=== PATIENT | female | born 1975 ===

== ENCOUNTER 2025-07-23 14:36 | Outpatient (CLI) | payer OTHER, MEDICAID, SELFPAY ==
--- OUTSIDE RECORDS SUMMARY | 2019-12-31 19:00 | XMS_ITS | Continuity of Care Document ---
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 Name Role Phone Neo Gillette MD Unavailable Unavailable Allergies, Adverse Reactions, Alerts Substance Reaction Status Criticality doxycycline Hives Active No Information lisinopril Active No Information Medications Medication Instructions Dosage Effective Dates (start - stop) Status Comments Xanax 0.25 mg tablet take 1 tablet by or al route 2 times every day as needed - Active Celexa 20 mg tablet take 1 tablet by ora l route every night - Active Celexa 40 mg tablet take 1 tablet by ora l route every morning - Active Celebrex 200 mg capsule take 1 capsule b y oral route every day as needed take with food - Active famotidine 40 mg tablet take 1 tablet by oral route every day at bedtime 40 MG - Active amlodipine 5 mg tablet take 1 tablet by oral route every day 5 MG - Active Nasonex 50 mcg/actuation [place] spray 2 spray by intranasal route every day in each nostril - Active spironolactone 25 mg tablet take 1 tablet by oral route every day 25 MG - Active tobramycin 0.3 % eye drops instill 1 drop by ophthalmic route 3 times a day into affected eye(s) for 7 days - Active loratadine 10 mg tablet take 1 tablet by oral route every day 10 MG - Active aspirin 81 mg chewable tablet chew 1 tablet (81MG) by oral route every day 81 MG - Active Procedures Procedure Date OFFICE/OUTPATIENT VISIT, EST OFFICE/OUTPATIENT VISIT, EST Urinalysis, Auto, w/o Scope URINE TEST, BY VISUAL COLOR CO MPARISON METHODS X-RAY EXAM, SPINE, CERVICAL, MIN 4 VIEWS OFFICE/OUTPATIENT VISIT, EST URINE TEST, BY VISUAL COLOR CO MPARISON METHODS Urinalysis, Auto, w/o Scope OFFICE OUTPT EST 25 MIN Alcohol and/or drug screening 7 OFFICE OUTPT EST 25 MIN Psychotherapy 30 Min W/pt And/or Family Member OFFICE OUTPT EST 25 MIN Drug Screen, Any Number Of Drugs/Date Of Service OFFICE OUTPT EST 25 MIN Alcohol and/or drug screening 5 Urinalysis, Auto, w/o Scope HEMOGLOBIN; GLYCOSYLATED (A1C) 15 COLLECTION OF CAPILLARY BLOOD SPECIMEN ( EG, FINGER, HEEL, EAR STICK) COLLECTION OF VENOUS BLOOD BY VENIPUNCTU RE BLOOD COUNT; COMPLETE (CBC), AUTOMATED D IFF COMPRE METAB PANEL LIPID PANEL URINALYSIS; MICROSCOPIC ONLY Amalgam two surfaces OFFICE/OUTPATIENT VISIT, EST OFFICE/OUTPATIENT VISIT, EST OFFICE/OUTPATIENT VISIT, EST OFFICE/OUTPATIENT VISIT, EST ELECTROCARDIOGRAM, COMPLETE COLLECTION OF VENOUS BLOOD BY VENIPUNCTU RE OFFICE/OUTPATIENT VISIT, NEW Dental bitewings four films Comprehensve oral evaluation Periodont scaling & root planing, 4+ daysi th, per qu Local Anesthesia - Pain Control 012 Oral hygiene instruction Voided Encounter Advance Directives Directive Yes / No Effective Date File Name No Information Encounters Encounter Description Practice Location Reason(s) For Visit Diagnoses Date Provider Providers Copied on Encounter [facility], [address], [place], [place], [id number] , [place] tel: [phone] [facility] No Information 0 Leta Neo. [address], [place], [place], [address], . tel: [phone] OFFICE/OUTPATI ENT VISIT, EST [facility], [address], [place], [place], [address] , [place] tel: [phone] [facility] Problems (chief complaint) Anxiety disorder, unspecifiedE ssential (primary) hypertension No Information OFFICE/OUTPATI ENT VISIT, EST [facility], [address], [place], [place], [address] , [place] tel: [phone] [facility] LT arm/ w Lt back pain (chief complaint)nec k pain (chief complaint) CervicalgiaP ain, unspecified No Information [facility], [address], [place], [place], [address] , [place] tel: [phone] [facility] No Information No Information [facility], [address], [place], [place], [address] , [place] tel: [phone] [facility] No Information 7 Hipolito Villafuerte. [address], [place], [place], [address], [place]. tel:[phone] OFFICE/OUTPATI ENT VISIT, EST [facility], [address], [place], [place], [address] , [place] tel: [phone] [facility] left eye irritation (chief complaint) Conjunctivit is 7 Hipolito Villafuerte. [address], [place], [place], [address], [place]. tel:[phone] Referring Provider: Christo Mcmillan, [address], [place], [address] . tel:[phone] OFFICE OUTPT EST 25 MIN [facility], [address], [place], [place], [address] , [place] tel: [phone] [facility] Problems (chief complaint) Anxiety disorder, unspecifiedE ssential (primary) hypertension Gastro-esoph ageal reflux disease without esophagitisH yperlipidemi a, unspecified 7 No Information OFFICE OUTPT EST 25 MIN [facility], [address], [place], [place], [address] , tel: [phone] [facility] Problems (chief complaint) Costochondri tisAbnormal electrocardi ogram [ECG] [EKG]Anxiety disorder, unspecifiedA llergic rhinitisEsse ntial (primary) hypertension Hyperlipidem iaGERD w/o esophagitis 6 No Information Psychotherapy 30 Min W/pt And/or Family Member [facility], [address], [place], [place], [address] , tel: [phone] [facility] Anxiety disorder, unspecified 6 No Information OFFICE OUTPT EST 25 MIN [facility], [address], [place], [place], [address] , [place] tel: [phone] [facility] PHARMACY PAPERWORK (chief complaint)DIS CUSS MEDICATIONS (chief complaint)hyp ertension (chief complaint) Essential (primary) hypertension GERD w/ esophagitisN icotine dependence, unspecified, uncomplicate dAnxiety disorder, unspecifiedH yperlipidemi a No Information [facility], [address], [place], [place], [address] , tel: [phone] [facility] No Information 6 No Information [facility], [address], [place], [place], [address] , [place] tel: [phone] [facility] Follow Up of HTN (chief complaint)SIN US PROBLEMS (chief complaint)URI NARY FREQUENCY (chief complaint) Allergic rhinitisNico osman dependence, unspecified, uncomplicate dVitamin D deficiencyEn counter for screening for other disorderInso mnia, unspecified 6 No Information OFFICE OUTPT EST 25 MIN [facility], [address], [place], [place], [address] , [place] tel: [phone] [facility] Follow Up of HTN (chief complaint)REF ILLS (chief complaint) Encounter for general adult medical examination without abnormal findingsEsse ntial (primary) hypertension InsomniaGERD w/ esophagitisU rinary frequencyEnc ounter for screening for other disorder 5 No Information [facility], [address], [place], [place], [address] , [place] tel: [phone] [facility] examination 3 Nahomi Mckeon [address], [place], [place], [address], [place]. tel:[phone] OFFICE/OUTPATI ENT VISIT, EST [facility], [address], [place], [place], [address] , [place] tel: [phone] [facility] sinusitis (chief complaint)hyp ertension (chief complaint) Hypertension Sinusitis 3 No Information OFFICE/OUTPATI ENT VISIT, EST [facility], [address], [place], [place], [address] , [place] tel: [phone] [facility] hypertension f/u (chief complaint) Hypertension Sinusitis 3 No Information OFFICE/OUTPATI ENT VISIT, EST [facility], [address], [place], [place], [address] , [place] tel: [phone] [facility] chest pain (chief complaint)HTN (chief complaint) Hypertension Stressful life event affecting family 2 No Information OFFICE/OUTPATI ENT VISIT, EST [facility], [address], [place], [place], [address] , [place] tel: [phone] [facility] hypertension (chief complaint) Hypertension Chest painAbnormal ECG 2 No Information OFFICE/OUTPATI ENT VISIT, NEW [facility], [address], [place], [place], [address] , [place] tel: [phone] [facility] abnormal heart beats (chief complaint)hyp ertension (chief complaint) Hypertension AnxietyAbnor mal ECG No Information [facility], [address], [place], [place], [address] , tel: [phone] [facility] [place] Dental examination No Information [facility], [address], [place], [place], [address] , tel: [phone] [facility] No Information No Information Family History Family Member Type Diagnosis Age At Onset Problem (finding) Family history of coronary arteriosclerosis Problem (finding) Family history of diabetes mellitus type 2 Payers Payer name Insurance type Covered democrat ID Authoriza tion(s) No Information Social History Type Description Quantity Date Captured Comments Sex Female Smoking Status No Information Chief Complaint And Reason For Visit No Information Reason For Referral Reason For Referral No Information Plan Of Treatment Date Type Action Status Goal TSH. Due on due Goal ECG. Due on due Goal BMP fasting. Due on due Goal Lipid Panel. Due on due Goal AST. Due on due Goal ALT. Due on due Goal AST. Due on due Goal TSH. Due on due Goal ALT. Due on due Goal BMP fasting. Due on due Goal ECG. Due on due Goal Lipid Panel. Due on due Goal Lipid Panel. Due on due Goal TSH. Due on due Goal ECG. Due on due Goal BMP fasting. Due on due Goal ALT. Due on due Goal AST. Due on due Goal BMP fasting. Due on due Goal Lipid Panel. Due on due Goal AST. Due on due Goal ALT. Due on due Goal ECG. Due on due Goal TSH. Due on due Goal Lipid Panel. Due on due Goal TSH. Due on due Goal AST. Due on due Goal ALT. Due on due Goal ECG. Due on due Goal BMP fasting. Due on due Goal ALT. Due on due Goal Lipid Panel. Due on due Goal AST. Due on due Goal BMP fasting. Due on due Goal TSH. Due on due Goal ECG. Due on due Goal Lipid Panel. Due on due Goal ECG. Due on due Goal BMP fasting. Due on due Goal TSH. Due on due Goal ALT. Due on due Goal AST. Due on due Goal ECG. Due on due Goal TSH. Due on due Goal Lipid Panel. Due on due Goal AST. Due on due Goal BMP fasting. Due on due Goal ALT. Due on due Goal Tobacco cessation counseling completed Goal ALT. Due on due Goal BMP fasting. Due on due Goal ECG. Due on due Goal TSH. Due on due Goal Lipid Panel. Due on due Goal AST. Due on due Goal Tobacco cessation counseling completed Goal TSH. Due on due Goal AST. Due on due Goal BMP fasting. Due on due Goal ALT. Due on due Goal Lipid Panel. Due on due Goal ECG. Due on due Goal Tobacco cessation counseling completed Goal ECG. Due on due Goal BMP fasting. Due on due Goal TSH. Due on due Goal Lipid Panel. Due on due Goal ALT. Due on due Goal AST. Due on due Goal Tobacco cessation counseling completed Referral Referred To: [address], [phone] Ordered: Referral: [facility]. Radiology-Chest Xray. ordered Referral Referred To: [address], [address] [phone] Ordered: Referral: [facility]. Cardiology. Consult. Appointment date/timeframe: 01/11/2013 ordered Future Order: Lab Order Vitamin D, 25-Hydroxy (OC47), Ordered on: Ordered Future Order: Lab Order TSH with Reflex to Free T4 (OC58), Ordered on: Ordered Future Order: Lab Order Lipid Pa jef (OC73), Ordered on: Ordered Future Order: Lab Order CBC (H/H , RBC, INDICES, WBC, PLT) (OC68), Ordered on: Ordered Future Order: Lab Order Comprehe nsive Metabolic Panel (OC71), Ordered on: Ordered History Of Present Illness Encounter Date Complaint History Of Prese nt Illness Problems Muscle pain s in neckNotes muscle pains and tightness posterior neck for a month or so. Seen in UC with this. methocarbamol not helpful. She believes this to be due to clinching and grinding of teeth at night - a long-time problem. Has a mouthpiece but takes it out while sleeping lately. All may be worse since out of alprazolam - months overdue for followup. Resume alplazolam once or twice per day, especially at HS. HTNBP is borderline high. Monitor. Wt up a few poundsAnxiety/DepressionStill on celexa 60 mg. It helps her. Restart Xanax NOT ADDRESSED TODAY:SmokerSmoking 2/3 pack per day. Knows to quitHyperlipidemiaAttempting life style changes for nowchest painMuch better. Rare pain now. Usually at rest - comes and goes for 5 minutes or so. Not exertional at all.EKG here was abnormal with ST-T abnormalities in inferior leads, but EKG unchanged from 2012. Had some chest pain then as well and was sent to [facility] and hospitalized. Had monitoring, workup including stress echo - all negative. More recent pains similar. Had definite tenderness over CC junctions on left. LT arm/ w Lt back pain The sympt oms began 4 weeks ago. She states the symptoms are acute. 41 yr old bf a a seen for upper backacheneck pain pain to left sode neck feels knots there and pain goes to left arm no fever chills nausea vomiting no cough sweating weight loss recently got few weeks ago at [facility] neck pain Onset: 4 weeks a go. Location of pain is left lateral neck, left posterior neck and left upper back. Aggravating factors include rotation. Pertinent negatives include dysphagia, incoordination, loss of balance, muscle atrophy, rash, tingling, weakness and weight loss. Additional information: denies any loss of sensations or weakness. left eye irritation C/O red irri tated drianing left eye for seven days, thinks may have initially gotten a facial cleanser in the eye, been using Cipro ophthalmic gtts with slight improvement but no resolution. Note AM crusting as well as tearing/drainage throughout the day. No fever or chills. Denies foreign body or other direct eye trauma. Problems pap smear and mayte vizcarra done [facility] last yr.HTNBP still borderline high on amlodipine 5mg. Makes her feel sluggish so takes it at night. Says lisinopril did same in past but also had cough with it. Try lifestyle changesPreviously noted she has a wrist BP cuff which gave her consistently getting high BPs. Advised to obtain and use an arm cuff instead but has not obtained one yet. .SmokerSmoking 2/3 pack per day. Knows to quitHyperlipidemiaAttempting life style changes for nowAnxiety/DepressionStill on celexa 60 mg. It helps her. On Xanax - uses it prn once or twice per daychest painMuch better. Rare pain now. Usually at rest - comes and goes for 5 minutes or so. Not exertional at all.EKG here was abnormal with ST-T abnormalities in inferior leads, but EKG unchanged from 2012. Had some chest pain then as well and was sent to [facility] and hospitalized. Had monitoring, workup including stress echo - all negative. More recent pains similar. Had definite tenderness over CC junctions on left. Problems chest painRe ports intermittent left chest pains for the last several months. Usually at rest - comes and goes for 5 minutes or so. Not daily, but sometimes off and on for days. When present, the pain is worse with breathing or movement. Otherwise activity is not related. Not exertional at all.EKG today abnormal with ST-T abnormalities in inferior leads. EKG unchanged from 2012. Had some chest pain then as well and was sent to [facility] and hospitalized. Had monitoring, workup including stress echo - all negative. Pain now is similar. Has definite tenderness over CC junctions on left.HTNHas wrist BP cuff. Used here today and is consistently getting high BPs - today was 140/103 but at home often 160-170 systolic. Here our automated cuff gave 126/82 and manually I found 130/82 on right and 130/85 on left. Advised to obtain and use an arm cuff instead.SmokerSmoking 3/4 pack per day. Knows to quitHyperlipidemiaAttempting life style changes for nowAnxiety/DepressionStill on celexa 60 mg. It helps her. Out of Xanax - uses prn a few times per week. DISCUSS MEDICATIONS PHARMACY PAPERWORK 40 year old A AF with PMH of HTN,HLD, depression, anxiety presents for f/u. Anxiety: Used to f/u private psychiatrist but cant afford visits any more as she lost her insurance. was prescribed lexapro last visit but pt states her symptoms were nto better. She would liek to go back to celexa prescribed by her psychiatrist, she was on celexa 60mg QD. Denies suicidal thoughts. Hyperlipidemia: Kathn refused to start medication. Preferred life style modification hypertension Risk factors inc lude race and smoking. Pertinent negatives include chest pain, claudication, confusion, diaphoresis, dyspnea, epistaxis, fatigue, headache, hematuria, irregular heartbeat/palpitations, nausea, tinnitus, transient weakness, tremor, visual disturbances and vomiting. SINUS PROBLEMS URINARY FREQUENCY Follow Up of HTN History of Pres ent Illness:1. Follow Up of HTN 39 year old AAF with PMH of HTN, depression, anxiety presents for f/u. Pt used to f/u PCP at out side facility and would like ot reestablish care wit [facility].Anxiety: Used to f/u private psychiatrist but cant afford visits any more as she lost her insurance. On xanax as needed prescribed by psychHTN: states she had bad cough with lsiinopril. She was palce don diuretic by previous PCP as she had bad LE swelling few years back which got better now. Takes meds faithfully.Insomnia: has probelms falling asleep. REFILLS Follow Up of HTN 39 year old AAF with PMH of HTN, depression, anxiety presents for f/u. Pt used to f/u PCP at out side facility and would like ot reestablish care wit Michaeljennie.Anxiety: Used to f/u private psychiatrist but cant afford visits any more as she lost her insurance. On xanax as needed prescribed by psychHTN: states she had bad cough with lsiinopril. She was palce don diuretic by previous PCP as she had bad LE swelling few years back which got better now. Takes meds faithfully.Insomnia: has probelms falling asleep. Functional Status Date Functional Assessmen t No Information Instructions Date Instruction Additional Infor lisa Get back on alprazol am especially at bedtimeFollowup in 6-8 weeks Related to Essential (primary) hypertension work on everything y ou can control STOP SMOKING Work on your dietary intake - less fat and less sugar, lower calories Take medicinesFollowup in June -- call in early April for appointment Related to Hyperlipidemia, unspecified Refilling medicinesT lilly famotidine every day!!Stop smokingKeep working on the dietGet an arm BP cuffFollowup in 2 months Related to GERD w/o esophagitis Eat healthy. Exercis e regularly.- Make appointment with dental.- Make sure you keep up the follow up appointments Related to Encounter for general adult medical examination without abnormal findings Take medications as prescribed Take medications as prescribed Take medications as prescribed Take medications as prescribed Continue current medication Stop Naprosyn after one week. Continue current medication Go to local ER if ca n not see chief deputy today. Take medications as prescribed Check to see can the Cardiology appointment be sooner. Take medications as prescribed See chief deputy BESS. Aleve 200mng, 2 twic e a day x 7 days with food. Assessments Type Assessment Date No Information Patient Care Teams Name Effective Dates (start - stop) Status Members No Information
--- NOTE | ~2025-07-23 | CT_ITS ---
CT ABDOMEN AND PELVIS WITHOUT CONTRAST Clinical History: FREQUENCY OF URINATION Comparison: None Technique: Unenhanced axial images lung bases to symphysis pubis Coronal, sagittal reformats CT images acquired with automatic exposure control for dose reduction DLP: 286 mGy-cm Findings: Without intravenous contrast, sensitivity for detecting visceral parenchymal abnormalities decreased. Lung bases: Clear. Visualized heart and pericardium: Unremarkable. Liver: A few small cysts. Gallbladder: Unremarkable. Spleen: Unremarkable. Pancreas: Unremarkable. Adrenal glands: Unremarkable. Kidneys: Right kidney- No hydronephrosis. No renal stones. Left kidney- No hydronephrosis. 1 mm stone. Distal esophagus/stomach: Unremarkable. Small bowel loops: Normal caliber and wall thickness. 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 Majority of small bowel loops right hemiabdomen Colon: Normal caliber and wall thickness. Normal appendix, deep central pelvis. Nodes: No enlarged nodes. Peritoneum: No ascites. No free intraperitoneal air. Urinary bladder: Unremarkable. Uterus: Unremarkable. Adnexa: No masses. Bones: No acute bony abnormality. Soft tissues: Unremarkable. Unopacified abdominal aorta: No aneurysmal dilatation. Atherosclerotic disease. IMPRESSION: 1. Possible 1 mm stone left kidney. No hydronephrosis. 2. No acute abnormality. Reviewed, dictated and finalized at location R.
--- OUTSIDE RECORDS SUMMARY | 2025-07-23 14:52 | XMS_ITS | Clinical Summary ---
Author Organization [facility] [employer] Address [address] [facility] [place] [address] Care Team Providers Care Forging Machine Operator Name Role Phone Dewey Ye DO Primary Care Provider [phone] Dewey Ye DO Unavailable [phone] Source Comments [facility],non-owned Affiliates and Associated Physician Practices is amultiple site organization consisting of ambulatory clinics and hospital sitesin [place], [place] and [place]. This disclosure is being madepursuant to the Care Everywhere program and may not contain all information available regarding this patient. Last updated 18.[facility] Allergies Active Allergy Reactions Criticality Noted Date Comments Doxycycline Nausea and/or Vomiting Low 01/18/2014 Lisinopril Cough,Unknown Low 10/29/2013 Medications * This document contains information received from the source organization and may not represent a complete record from that organization. * Be aware that medications may not be up to date on this document. Alwaysverify current medications with the patient. esomeprazole (NexIUM) 40 MG capsuleIndicatio ns:Gastroesophag eal reflux disease without esophagitis Take 1 (one) capsule by mouth daily before breakfast 90 capsule 4 01/09/20 24 Active Additional Information Patient not taking.Reported on 07/12/2025 citalopram (CeleXA) 20 MG tablet Take 1 (one) tablet by mouth once daily 30 tablet 11/23/19 25 Active busPIRone (Buspar) 5 MG tablet Take 1 (one) tablet by mouth 2 times daily Active irbesartan (Avapro) 75 MG tabletIndication s:Primary hypertension Take 1 (one) tablet by mouth once daily 100 tablet 4 07/12/20 25 Active nitrofurantoin monohyd macro crystals (Macrobid) 100 MG capsuleIndicatio ns:Frequency of urination,Other microscopic hematuria Take 1 (one) capsule by mouth 2 times daily with morning and evening meal 14 capsule 07/12/20 25 Active clonazePAM (KlonoPIN) 0.5 MG tabletIndication s:Situational mixed anxiety and depressive disorder Take 1 (one) tablet by mouth at bedtime 14 tablet 07/12/20 25 Active traMADol (Ultram) 50 MG tabletIndication s:Acute right flank pain Take 1 (one) tablet by mouth every 6 hours as needed for Pain 20 tablet 07/15/20 25 Active nicotine (Nicoderm CQ) 21 MG/24HR patchIndications :Suicidal ideation Apply 1 (one) patch to skin once daily 28 patch 01/04/20 25 025 Discontin ued(List Clean-Up) amLODIPine (Norvasc) 10 MG tabletIndication s:Primary hypertension Take 1 (one) tablet by mouth once daily 90 tablet 4 02/13/20 25 025 Discontin ued(Clini erik Decision) clonazePAM (KlonoPIN) 0.5 MG tabletIndication s:Situational mixed anxiety and depressive disorder Take 1 (one) tablet by mouth at bedtime 14 tablet 02/14/20 25 025 Discontin ued(Reord er) losartan (Cozaar) 25 MG tabletIndication s:Primary hypertension Take 1 (one) tablet by mouth once daily 100 tablet 4 02/14/20 25 025 Discontin ued(Clini erik Decision) Active Problems Problem Noted Date Diagnosed Date Generalized anxiety disorder 07/12/2025 Mild recurrent major depression 07/12/2025 Anxiety states 11/17/2024 Current smoker 09/29/2017 Gastroesophageal reflux disease 09/29/2017 Hyperlipidemia 09/29/2017 PCOS (polycystic ovarian syndrome) 01/22/2014 Anxiety 10/29/2013 DJD (degenerative joint disease) 10/29/2013 Overview (07/21/2022): HANDS FEET AND SHOULDER Overview: HANDS FEET AND SHOULDER HTN (hypertension) 10/29/2013 Resolved Problems Problem Noted Date Diagnosed Date Resolved Date Suicidal ideation 11/17/2024 07/12/2025 Ear itching 04/29/2020 07/21/2022 Otitis externa 04/29/2020 07/21/2022 Dysmenorrhea 12/10/2019 07/21/2022 Investigation and testing fo r procreation management 10/23/2017 07/21/2022 Backache 09/29/2017 07/21/2022 Hypertrichosis 07/17/2014 07/21/2022 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 [address] [address] Dewey Ye DO Referral 07/17/2025 Results Follow-Up [facility] 1000 [facility], [address] [address] Dewey Ye DO 07/12/2025 10:45 AM CDT Office Visit [facility] 1000 [facility], [address] [address] Dewey Ye DO Frequency of urination (Primary Dx); Well adult exam; Acute right flank pain; Primary hypertension; Other microscopic hematuria; Encounter for screening mammogram for malignant neoplasm of breast; Colon cancer screening 07/12/[address] [facility] [address] [address] Dewey Ye DO MEDICATION REFILL from Last 3 Months Family History Medical History Relation Name Comments CAD (Coronary Artery Disease) Father Heart Failure Father Cancer - Lung Mother Relation Name Status Comments Father Alive Mother Social History Tobacco Use Types Packs/Day Years Used Date Smoking Tobacco: Every Day Cigarettes Smokeless Tobacco: Never Tobacco Cessation:Ready to Q uit: Not Asked; Counseling Given: Not Answered Alcohol Use Standard Drinks/Week Comments Yes 0 (1 standard drink = 0.6 oz pur e alcohol) rare AUDIT-C Answer Date Recorded Q1: How often do you have a drink containing alc ohol? Monthly or less 11/17/2024 Q2: How many drinks containi ng alcohol do you have on a typical day when you are drinking? 1 or 2 11/17/2024 Q3: How often do you have si x or more drinks on one occasion? Never 11/17/2024 Overall Financial Resource Strain (CARDIA) Answe r Date Recorded How hard is it for you to pa y for the very basics like food, housing, medical care, and heating? Not very hard 11/17/2024 PHQ-2 Answer Date Recorded Patient Health Questionnaire-2 Score 2 07/12/2025 [facility] [place] [facility] Occupat ional Health - Occupational Stress Questionnaire Answer Date Recorded Do you feel stress - tense, restless, nervous, or anxious, or unable to sleep at night because your mind is troubled all the time - these days? To some extent 11/17/2024 Hunger Vital Sign Answer Date Recorded Within the past 12 months, y ou worried that your food would run out before you got the money to buy more. Never true 11/17/20 24 Within the past 12 months, t he food you bought just didn't last and you didn't have money to get more. Never true 11/17/2024 PRAPARE - Transportation Answer Date Re corded In the past 12 months, has l ack of transportation kept you from medical appointments or from getting medications? No 10/22 In the past 12 months, has l ack of transportation kept you from meetings, work, or from getting things needed for daily living? No 11/17/2024 Housing Stability Vital Sign Answer Igor e Recorded In the last 12 months, was t here a time when you were not able to pay the mortgage or rent on time? No 11/17/2024 In the past 12 months, how m any times have you moved where you were living? 1 11/17/2024 At any time in the past 12 m [facility], were you homeless or living in a [place] facility (including now)? No 11/17/2024 Comments No Sex and Gender Information Value Date Recorded Sex Assigned at Female 04/08/2023 10:48 AM CDT Legal Sex Female 6:04 AM FIOS LINE INSTALLER Gender Identity Female 04/08/2023 10:48 AM CDT Sexual Orientation Not on file Last Filed Vital Signs Vital Sign Reading Time Taken Comments Blood Pressure 138/82 07/12/2025 9:33 AM CDT Pulse 78 07/12/2025 9:33 AM CDT Temperature 36.7 C (98.1 F) 11/22/2024 7:33 AM FIOS LINE INSTALLER Respiratory Rate 18 07/12/2025 9:33 AM CDT Oxygen Saturation 98% 07/12/2025 9:33 AM CDT Inhaled Oxygen Concentration - - Weight 62.5 kg (137 lb 12.8 oz) 07/12/2025 9:33 AM CDT Height 162.6 cm (5' 4) 07/12/2025 9:33 AM CDT Body Mass Index 23.65 07/12/2025 9:33 AM CDT Plan of Treatment Health Maintenance Due Date Last Done Comments COLOGUARD (AGES 45-75) - COLON CA SCREENING 1976 COLON MONITORING 1976 COLONOSCOPY - COLON CA SCREENING 1976 CT COLONOGRAPHY - COLON CA SCREENING 1976 Colorectal Cancer Screening 1976 FIT - COLON CA SCREENING 1976 FLEX SIG - COLON CA SCREENING 1976 MAMMOGRAM 1976 HIV SCREENING 1991 HEPATITIS C SCREENING 11/11/1994 DTAP/TDAP/TD VACCINES (1 - Tdap) 1995 HEPATITIS B VACCINE (1 of 3 - 19+ 3-dose series) 1995 PNEUMOCOCCAL VACCINE (1 of 2 - PCV) 1995 PAP SMEAR 1997 COVID-19 VACCINE (3 - season) 2025 02/19/2021, 01/27/2021 INFLUENZA VACCINE (#1) 2025 ZOSTER VACCINE (1 of 2) 2026 LIPID TESTING 01/09/2029 01/09/2024, 03/21, 07/21/2022 DEPRESSION SCREENING Completed 07/12/2025, 01/09/2024, 04/07/2023, Additional history exists HIB VACCINE Aged Out No longer eligi ble based on patient's age to complete this topic HPV VACCINE Aged Out No longer eligi ble based on patient's age to complete this topic MENINGOCOCCAL (Group B) VACCINE SHARED DECISION-MAKING Aged Out No longer eligible based on patient's age to complete this topic MENINGOCOCCAL GROUPS A/C/Y/W VACCINE Aged Out No longer eligible based on patient's age to complete this topic Procedures Procedure Name Priority Date/Time Associated Diagnosis Comments CULTURE URINE Routine 07/12/2025 10:17 AM CDT Frequency of urination URINALYSIS AUTO - POINT OF CARE Routine 07/12/2025 10:15 AM CDT Frequency of urination LIPID PROFILE Routine 01/09/2024 9:51 AM FIOS LINE INSTALLER Well adult exam from Last 3 Months or Most Recently Relevant to Health Maintenance Results * CULTURE URINE (07/12/2025 10:17 AM CDT) Pathologist [facility] Urine Culture Routine Final report [facility] ACCOUNT BILL Comment: Performed at: - [facility] [id number] Neonatal Intensive Care Unit Nurse: Yonatan Ye PhD, Phone: [phone] Result 1 Comment [facility] ACCOUNT BILL Comment: Mixed urogenital ivanna 10,000-25,000 colony forming units per mL Urine URINE SPECIMEN OBTAINED BY CLEAN CATCH PROCEDURE / Unknown 07/12/2025 10:17 AM CDT 07/12/2025 Comment:Urine - clean catch R Narrative [facility] ACCOUNT BILL - 07/16/2025 7:09 PM CDT Performed at: - [facility] [id number] Neonatal Intensive Care Unit Nurse: Yonatan Ye PhD, Phone: [phone] Dewey [place] DO LAB - MICROBIOLOGY ORDERABLES Final Result [facility] ACCOUNT BILL [address] [place] [address] * URINALYSIS AUTO - POINT OF CARE (07/12/2025 10:15 AM CDT) Pathologist [facility] Clarity UA POCT clear [facility] Color UA POCT yellow [facility] Leukocyte UA neg Negative [facility] Nitrite UA POCT neg Negative [facility] Urobilinogen UA 0.2 0.1 - 1.0 [facility] Protein UA POCT neg Negative [facility] [place] pH UA 6.0 5.0 - 8.0 pH units [facility] [place] Blood UA positive Negative [facility] [place] Specific [place] UA POCT 1.010 1.002 - 1.030 [facility] Ketone UA neg Negative [facility] Bilirubin UA POCT neg Negative [facility] Glucose UA neg Negative [facility] [place] Urine URINE / Unknown 07/12/2025 1 0:15 AM CDT Dewey Ye DO LAB - POINT OF CARE ORDERABLES Final Result [facility] [address] [place] [address] [phone] * (ABNORMAL) LIPID PROFILE (01/09/2024 9:51 AM FIOS LINE INSTALLER) Cholesterol 185 <200 mg/dL [facility] HDL Cholesterol 55 > OR = 50 mg/dL [facility] Triglycerides 62 <150 mg/dL [facility] LDL Calculated 115(H) mg/dL (calc) [facility] Comment: Reference range: <100 Desirable range <100 mg/dL for primary prevention; <70 mg/dL for patients with CHD or diabetic patients with > or = 2 CHD risk factors. LDL-C is now calculated using the Singh-Etelvina calculation, which is a validated novel method providing better accuracy than the Friedewald equation in the estimation of LDL-C. Singh BENÍTEZ et al. CHEPE. 2013;310(19): 6824-2202 (http://education.[employer]/faq/XMW352) CHOL/HDLC RATIO 3.4 <5.0 (calc) [facility] Non HDL Cholesterol 130(H) <130 mg/dL (calc) [facility] Comment: For patients with diabetes plus 1 major ASCVD risk factor, treating to a non-HDL-C goal of <100 mg/dL (LDL-C of <70 mg/dL) is considered a therapeutic option. Test Performed at: [facility] [id number] [id number] DAVON GRANT MD Blood BLOOD SPECIMEN / Unknown 01/09/2024 9:51 AM FIOS LINE INSTALLER 01/09/2024 9:51 AM FIOS LINE INSTALLER Dewey Ye DO LAB - CHEMISTRY ORDERABLES Fin al Result Performing Organization Address City/State/[facility] Co de Phone Number [facility] [address] [place] [address] from Last 3 Months or Most Recently Relevant to Health Maintenance Insurance [facility] Leti Arz[place] [id number] [facility] MEDICAID - [place] Advance Directives * Full Code (Latest Code Status on File) Date Activated Date Inactivated Comments 11/17/2024 2:04 AM 11/22/2024 4:07 PM Care Teams Forging Machine Operator Relationship Specialty Start Date End Date Dewey Ye DO [address] [address] PCP - General Family Medicine 07/20/22 Dewey Ye DO [address] [address] Family Medicine 07/20/22
--- OUTSIDE RECORDS SUMMARY | 2025-07-23 14:52 | XMS_ITS | Encounter Summary ---
Author Organization [facility] Address [address] [place] [address] Care Team Providers Care Senior Ui Ux Developer Name Role Phone Dewey Ye DO Primary Care Provider [phone] Dewey Ye DO Unavailable [phone] Encounter Details Date Type Department Care Team (Late st Contact Info) Description 07/17/2025 Results Follow-Up [facility] Medical [facility] - Family Medicine [address] [facility] [address] [place] [id number] Dewey Ye DO [address] [address] Social History Tobacco Use Types Packs/Day Years Used Date Smoking Tobacco: Every Day Cigarettes Smokeless Tobacco: Never Alcohol Use Standard Drinks/Week Comments Yes 0 [...] Recorded Patient Health Questionnaire-2 Score 2 07/12/2025 [facility] [place] of Occupat ional Health - Occupational Stress [...] any time in the past 12 m [facility], were you homeless or living in a fci (including now)? No 11/17/2024 Comments No Sex and Gender Information Value Date Recorded Sex Assigned at Female 04/08/2023 10:48 AM CDT Legal Sex Female 6:04 AM MANAGER PIPELINE Gender Identity Female 04/08/2023 10:48 AM CDT Sexual Orientation Not on file documented as of this encounter Functional Status * Is person deaf or have serious hearing difficulty? Answer Date of Assessment Author No 11/17/2024 2:20 AM Mary Mccoy RN * Is person blind or have serious difficulty seeing? Answer Date of Assessment Author No 11/17/2024 2:20 AM Mary Mccoy RN * Does person have serious difficulty walking/climbing stairs? Answer Date of Assessment Author No 11/17/2024 2:20 AM Mary Mccoy RN * Does person have difficulty dressing/bathing? Answer Date of Assessment Author No 11/17/2024 2:20 AM Mary Mccoy RN * Does person have difficulty doing errands alone? Answer Date of Assessment Author No 11/17/2024 2:20 AM Mary Mccoy RN documented as of this encounter Mental Status * Does person have difficulty concentrating/remembering/making decisions? Answer Entry Date Author No 11/17/2024 2:20 AM Mary Mccoy RN documented in this encounter Plan of Treatment Not on file documented as of this encounter Visit Diagnoses Not on filedocumented in this encounter Care Teams Senior Ui Ux Developer Relationship Specialty Start Date End Date Dewey Ye DO [address] [address] PCP - General Family Medicine 07/20/22 Dewey Ye DO [address] [address] Family Medicine 07/20/22 documented as of this encounter
--- OUTSIDE RECORDS SUMMARY | 2025-07-23 14:52 | XMS_ITS | Clinical Summary ---
Author Organization [facility] Address [address] [place] [address] Care Team Providers Care Packing Tractor Machine Operator Name Role Phone Unavailable Primary Care Provider Unavailabl e Medications losartan (COZAAR) 25 mg tablet Take 1 Tablet (25 mg) by mouth daily. 100 Tablet 4 12/15/2024 11:34 AM MANAGER ACTUARIAL 05/01/2024 Active ALPRAZolam (XANAX) 0.5 mg tablet Take 1 (one) tablet by mouth 3 times daily as needed for Anxiety 90 Tablet 2 08/31/2024 12:24 PM CDT 05/01/2024 Active clonazePAM (KlonoPIN) 0.5 mg Tablet Take 1 Tablet (0.5 mg) by mouth daily at bedtime. 30 Tablet 01/04/2025 12:26 PM MANAGER ACTUARIAL 01/02/2025 Active Encounters Date Type Department Care Team Description 06/25/2025 External Device Data [facility]STRACTION Provider, Abstract 06/05/2025 External Device Data [facility] Provider, Abstract 06/05/2025 External Device Data [facility] Provider, Abstract 05/07/2025 External Device Data [facility] Provider, Abstract 04/23/2025 External Device Data [facility]STRACTION Provider, Abstract from Last 3 Months Social History Tobacco Use Types Packs/Day Years Used Date Smoking Tobacco: Never Assessed Comments Unknown Sex and Gender Information Value Date Recorded Sex Assigned at Not on file Legal Sex Female 10:16 AM CDT Gender Identity Not on file Sexual Orientation Not on file Plan of Treatment Health Maintenance Due Date Last Done Comments DTAP/TDAP/TD VACCINES (1 - Tdap) 1995 HEPATITIS B VACCINES (1 of 3 - 19+ 3-dose series) 10/22 HPV/Cotest (21-29) 1997 CERVICAL CANCER SCREENING 2006 HPV/Cotest (30-65) 2006 PAP SMEAR 2006 BREAST CANCER SCREENING 2016 COLORECTAL SCREENING 2021 Colorectal Cancer Screening 2021 FIT-DNA Q 3 years 2021 FIT/FOBT Q 1 year 2021 Flex Sig/CT Colonography Q 5 years 2021 INFLUENZA VACCINE (#1) 2025 Insurance RX [employer]
== END 2025-07-23 14:37 | disposition home or self-care (01) ==
DX: R35.0 Frequency of micturition (principal); R10.9 Unspecified abdominal pain; R31.29 Other microscopic hematuria
CPT/HCPCS: 74176